=== PATIENT | male | born 1955 | race Caucasian/White ===

== ENCOUNTER 2017-02-08 11:09 | Emergency (ER) | payer BC ==
[2017-02-08] MEDS ORDERED: Bacitracin Oint 1 GM U/D Packet TOP ONE (11:21)
[2017-02-08] MEDS ORDERED: Diphtheria,Pertussis(Acell),Tetanus Vaccine 0.5 ML SDV IM ONE (11:21)
[2017-02-08 11:26] VITALS: BP 116/72
--- NOTE | 2017-02-08 11:46 | EDM.PDOC ---
ED HPI GENERAL MEDICAL PROBLEM - General Chief Complaint: Laceration Stated Complaint: FISH HOOK LT THUMB Time Seen by Provider: 02/08/17 11:30 Source of Information: Reports: Patient History Limitations: Reports: No Limitations - History of Present Illness INITIAL COMMENTS - FREE TEXT/NARRATIVE: 61-year-old male has one shayla of a trouble hook embedded into the dorsal aspect of the left thumb just distal to the IP joint. No other injury. He is due for a tetanus booster. Onset: Today Location: Reports: Upper Extremity, Left - Related Data Allergies Allergy/AdvReac Type Severity Reaction Status Date / Time No Known Allergies Allergy Verified 02/08/17 11:23 Home Meds: Home Meds Fenofibrate 50 mg PO DAILY 02/08/17 [History] Meloxicam 15 mg PO DAILY 02/08/17 [History] Metoprolol Succinate 25 mg PO DAILY 02/08/17 [History] Past Medical History Cardiovascular History: Reports: High Cholesterol, Hypertension - Past Surgical History HEENT Surgical History: Reports: Tonsillectomy Musculoskeletal Surgical History: Reports: Amputation, Hip Replacement Social & Family History - Tobacco Use Smoking Status *Q: Never Smoker - Caffeine Use Caffeine Use: Reports: Coffee - Recreational Drug Use Recreational Drug Use: No ED ROS GENERAL - Review of Systems Review Of Systems: See Below Constitutional: Denies: Fever, Chills Respiratory: Denies: Shortness of Breath Cardiovascular: Denies: Chest Pain GI/Abdominal: Denies: Nausea, Vomiting ED EXAM, SKIN/RASH Exam: See Below Exam Limited By: No Limitations General Appearance: Alert, No Apparent Distress Respiratory/Chest: No Respiratory Distress Extremities: Other (exam is otherwise limited to the left hand. There is one shayla of a trouble hook embedded into the thumb just distal to the IP joint on the dorsal aspect of the thumb.) Course - Vital Signs Last Recorded V/S: Last Vital Signs Temp 97.4 F 02/08/17 11:25 Pulse 77 02/08/17 11:25 Resp 16 02/08/17 11:25 BP 116/72 02/08/17 11:25 Pulse Ox 99 02/08/17 11:25 - Orders/Labs/Meds Orders: Active Orders 24 hr Category Date Time Status Vaccines to be Administered [RC] PER UNIT ROUTINE Care 02/08/17 11:22 Inactive Meds: Medications Discontinued Medications Generic Name Dose Route Start Last Admin Trade Name Freq PRN Reason Stop Dose Admin Bacitracin 1 dose 02/08/17 11:21 02/08/17 11:31 Bacitracin Oint 1 Gm TOP 02/08/17 11:22 1 dose ONETIME ONE Administration Diphtheria/Tetanus/Acell Pertussis 0.5 ml 02/08/17 11:21 02/08/17 11:31 Adacel IM 02/08/17 11:22 0.5 ml .ONCE ONE Administration Lidocaine HCl 5 ml 02/08/17 11:21 02/08/17 11:31 Xylocaine-Mpf 1% INJECT 02/08/17 11:22 5 ml ONETIME ONE Administration - Re-Assessments/Exams Free Text/Narrative Re-Assessment/Exam: 02/08/17 11:45 the area was sterilized with alcohol, small amount of 1% lidocaine was infiltrated and the fishhook was backed out using a needle chase. A small amount of bacitracin and a Band-Aid was applied and the patient was given a TDap Booster. He is to keep the wound covered and clean while healing. Departure - Departure Time of Disposition: 11:52 Disposition: Home, Self-Care 01 Condition: Good Clinical Impression: Odum injury to finger Qualifiers: Encounter type: initial encounter Laterality: left Qualified Code(s): S69.92XA - Unspecified injury of left wrist, hand and finger(s), initial encounter - Discharge Information Instructions: Puncture Wound Referrals: PCP,None [Primary Care Provider] - Forms: ED Department Discharge Care Plan Goals: Keep wound covered and clean while healing. Recheck if concerns of infection or not healing satisfactorily.
== END 2017-02-08 11:53 | disposition home or self-care (01) ==
LOC: JP.ED 11:09
DX: S60.352A Superficial foreign body of left thumb, initial encounter (principal); I10 Essential (primary) hypertension; E78.00 Pure hypercholesterolemia, unspecified; Z23 Encounter for immunization; Z79.899 Other long term (current) drug therapy; Z96.649 Presence of unspecified artificial hip joint; Z98.890 Other specified postprocedural states; W45.8XXA Other foreign body or object entering through skin, initial encounter
CPT/HCPCS: 90471; 90715; 99283-25